=== PATIENT | male | born 1975 | race Caucasian/White ===

== ENCOUNTER 2019-09-26 10:45 | Emergency (ER) | payer BC ==
[2019-09-26 11:13] VITALS: BP 190/120
--- NOTE | 2019-09-26 11:13 | UC ---
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 HE DEVELOPED SOME LIGHTHEADEDNESS AND SAW SOME DARK SPOTS. HE ALSO HAD SOME TRANSIENT SHORTNESS OF BREATH AND TINGLING IN HIS HANDS. THIS ALL LASTED JUST A FEW SECONDS AND THEN ABATED. HE HAD A SECOND EPISODE MOMENTS LATER WHICH ALSO SPONTANEOUSLY RESOLVED. IS STILL FEELING A LITTLE "OFF" SO CAME TO THE URGENT CARE FOR FURTHER EVALUATION. NO NAUSEA OR DIZZINESS. HE HAS A HISTORY OF UNTREATED MILD HYPERTENSION AND GOUT. - History of Current Complaint Chief Complaint: UCCardiac Stated Complaint: DIZZY CHEST PAIN Time Seen by Provider: 09/26/19 10:46 Hx Obtained From: Patient Onset/Duration: Sudden Onset Timing: Intermittent Episodes Lasting: - SECONDS Initial Severity: Moderate Current Severity: Moderate Pain Intensity: 2 Chest Pain Location: Lower Sternal Aggravating Factor(s): Nothing Alleviating Factor(s): Spontaneous Resolution Associated Signs & Symptoms: Positive: Chest Pain, Tingling, SOB. Negative: Diaphoresis, Nausea/Vomiting, Palpitations - Allergy/Home Medications Allergies/Adverse Reactions: Allergies Allergy/AdvReac Type Severity Reaction Status Date / Time No Known Allergies Allergy Verified 09/26/19 10:59 Home Medications: Home Medications Ibuprofen [Advil] 600 mg PO ONCE PRN 09/26/19 [History Confirmed 09/26/19] allopurinoL [Allopurinol] 3 tab PO DAILY 09/26/19 [History Confirmed 09/26/19] PMH/Surg Hx/FS Hx/Imm Hx - Additional Past Medical History Additional PMH: GOUT Cardiovascular History: Hypertension - Surgical History Surgical History: Yes Surgery Procedure, Year, and Place: T&A. moles removed - Family History Known Family History: Positive: Cardiac Disease, Hypertension - Social History Alcohol Use: Weekly Alcohol Amount: couple times a week Substance Use Type: None Smoking Status (MU): Former Smoker Review of Systems All Other Systems Reviewed And Are Negative: Yes Constitutional: Positive: Negative ENT: Positive: Negative Respiratory: Positive: Shortness Of Breath Cardiovascular: Positive: Chest Pain Gastrointestinal: Positive: Negative Neurological: Positive: Paresthesia Physical Exam Triage Information Reviewed: Yes Appearance: Well-Appearing, No Pain Distress, Well-Nourished Vital Signs: Initial Vital Signs Temp 99.2 F 01/21/20 10:52 Pulse 82 09/26/19 10:52 Resp 18 09/26/19 10:52 BP 170/87 09/26/19 10:52 Pulse Ox 100 09/26/19 10:52 Vital Signs Reviewed: Yes Eyes: Positive: Conjunctiva Clear ENT: Positive: Hearing grossly normal Neck: Positive: Supple, Nontender, No Lymphadenopathy Respiratory Exam: Normal Cardiovascular Exam: Normal Abdomen Description: Positive: Nontender, Soft Musculoskeletal: Positive: No Edema Neurological: Positive: Alert, Muscle Tone Normal, Other: - CN II-XII GROSSLY INTACT BILATERALLY Psychological: Positive: Age Appropriate Behavior Skin: Negative: Rashes Diagnostics - EKG Cardiac Rate: NL - 69 BPM Cardiac Rhythm: Sinus: Normal Ectopy: None ST Segment: Normal - Assessment/Plan Course Of Treatment: PT OFFERED TRANSPORT TO THE ER BY AMBULANCE BUT DECLINES. ADVISED THAT BY NOT TRAVELING IN A MONITORED SETTING HE COULD BE RISKING WORSENING OF HIS CONDITION THAT COULD POSE A THREAT TO HIS LIFE, HEALTH AND MEDICAL SAFETY. DISCUSSED MY CONCERN FOR UNDERLYING CARDIAC CONDITION AND DANGEROUSLY ELEVATED BP. HE VERBALIZES UNDERSTANDING AND CONTINUES TO DECLINE AMBULANCE TRANSFER. CHARGE NURSE MICHAEL AT THE [facility] NOTIFED OF PT IMPENDING ARRIVAL. - Clinical Impression Provider Diagnosis: Chest pain Discharge ED - Sign-Out/Discharge Documenting (check all that apply): Patient Departure All imaging exams completed and their final reports reviewed: No Studies - Discharge Plan Condition: Stable Disposition: TRANS HIGHER LVL OF CARE FAC Patient Education Materials: Chest Pain (ED) Referrals: No Primary Care Phys,NOPCP [Primary Care Provider] - Additional Instructions: GO DIRECTLY TO THE [facility] FROM HERE FOR FURTHER EVALUATION. YOU HAVE DECLINED TRANSFER TO THE ER BY AMBULANCE. BE ADVISED THAT BY NOT TRAVELING IN A MONITORED SETTING YOU COULD BE RISKING WORSENING OF YOUR CONDITION THAT COULD POSE A THREAT TO YOUR LIFE, HEALTH AND MEDICAL SAFETY. - Billing Disposition and Condition Condition: STABLE Disposition: Trans Higher Lvl of Care Fac
== END 2019-09-26 11:16 | disposition short-term general hospital (02) ==
LOC: UCEAST 10:45
DX: R07.9 Chest pain, unspecified (principal); I10 Essential (primary) hypertension; M10.9 Gout, unspecified; Z87.891 Personal history of nicotine dependence; Z79.899 Other long term (current) drug therapy
CPT/HCPCS: 93005; 99202; G0463

== ENCOUNTER 2019-09-26 11:30 | Emergency (ER) | payer BC ==
--- NOTE | 2019-09-26 11:52 | ED ---
HPI Chest Pain - HPI Summary HPI Summary: This pt is a 44 y/o male presenting to [facility] c/o episodes of chest fluttering since 1015 today. Pt reports he was in a meeting while sitting down when he suddenly felt fluttering sensation in his chest. He states he thought he might fall over and had associated symptoms of diaphoresis, hands feeling cold and clammy. Pt reports this episodes lasted 3-4 seconds and then resolved spontaneously. Denies any nausea, vomiting, or dizziness. Pt went outside to get some fresh air and then drove to [facility]. Pt states he had a second episode of chest fluttering that also lasted 3-4 seconds but resolved spontaneously again. Pt had an EKG at [facility] and was advised to come to the ED. Pt reports occasional alcohol. Denies drug use. He is a former smoker. Patient also reports increase in coffee intake lately. Denies drinking any power drinks. - History of Current Complaint Chief Complaint: EDChestPainROMI Time Seen by Provider: 09/26/19 11:45 Hx Obtained From: Patient Onset/Duration: Started Hours Ago, Still Present Timing: Lasting Seconds Current Severity: None Pain Intensity: 0 Pain Scale Used: 0-10 Numeric Chest Pain Location: Diffuse Chest Pain Radiates: No Character: Fluttering Aggravating Factor(s): Nothing Alleviating Factor(s): Spontaneous Resolution Associated Signs and Symptoms: Positive: Chest Pain, Diaphoresis. Negative: Dizziness, Nausea, Vomiting - Allergy/Home Medications Allergies/Adverse Reactions: Allergies Allergy/AdvReac Type Severity Reaction Status Date / Time No Known Allergies Allergy Verified 09/26/19 11:42 PMH/Surg Hx/FS Hx/Imm Hx Cardiovascular History: Reports: Hx Hypertension Musculoskeletal History: Reports: Hx Gout - Surgical History Surgical History: Yes Surgery Procedure, Year, and Place: T&A. moles removed Infectious Disease History: No Infectious Disease History: Denies: Traveled Outside the [place] in Last 30 Days - Family History Known Family History: Positive: Cardiac Disease - father with fatal [place] in his 70s, Hypertension Family History: Mother with colon CA. - Social History Alcohol Use: Weekly Alcohol Amount: couple times a week Substance Use Type: Reports: None Smoking Status (MU): Former Smoker Review of Systems Positive: Skin Diaphoresis. Negative: Fever Positive: Chest Pain All Other Systems Reviewed And Are Negative: Yes Physical Exam - Summary Physical Exam Summary: VITAL SIGNS: Reviewed. GENERAL: Patient is a well-developed and nourished male who is lying comfortable in the stretcher. Patient is not in any acute respiratory distress. HEAD AND FACE: No signs of trauma. No ecchymosis, hematomas or skull depressions. No sinus tenderness. EYES: PERRLA, EOMI x 2, No injected conjunctiva, no nystagmus. EARS: Hearing grossly intact. Ear canals and tympanic membranes are within normal limits. MOUTH: Oropharynx within normal limits. NECK: Supple, trachea is midline, no adenopathy, no JVD, no carotid bruit, no c- spine tenderness, neck with full ROM. CHEST: Symmetric, no tenderness at palpation LUNGS: Clear to auscultation bilaterally. No wheezing or crackles. CVS: Regular rate and rhythm, S1 and S2 present, no murmurs or gallops appreciated. ABDOMEN: Soft, non-tender. No signs of distention. No rebound, no guarding, and no masses palpated. Bowel sounds are normal. EXTREMITIES: FROM in all major joints, no edema, no cyanosis or clubbing. NEURO: Alert and oriented x 3. No acute neurological deficits. Speech is normal and follows commands. SKIN: Dry and warm Triage Information Reviewed: Yes Vital Signs On Initial Exam: Initial Vitals Temp Pulse Resp BP Pulse Ox 98.0 F 70 16 180/101 100 09/26/19 11:39 09/26/19 11:39 09/26/19 11:39 09/26/19 11:39 09/26/19 11:39 Vital Signs Reviewed: Yes Procedures - Sedation Patient Received Moderate/Deep Sedation with Procedure: No Diagnostics - Vital Signs Vital Signs Temp Pulse Resp BP Pulse Ox 09/26/19 11:39 98.0 F 70 16 180/101 100 - Laboratory Result Diagrams: 09/26/19 11:47 09/26/19 11:47 Lab Statement: Any lab studies that have been ordered have been reviewed, and results considered in the medical decision making process. - Radiology chest XR Radiology Interpretation Completed By: Radiologist Summary of Radiographic Findings: IMPRESSION: No evidence for active cardiopulmonary disease. Dr. Lara has reviewed this report. - EKG 11:34 Cardiac Rate: NL - at 70 bpm EKG Rhythm: Sinus Rhythm Summary of EKG Findings: EKG at 1134 shows sinus rhythm at a rate of [address] elevations. ED physician has reviewed and interpreted this EKG. Chest Pain Course/Dx - Course Assessment/Plan: This pt is a 44 y/o male presenting to [facility] c/o episodes of chest fluttering since 5 today. Pt reports he was in a meeting while sitting down when he suddenly felt fluttering sensation in his chest. He states he thought he might fall over and had associated symptoms of diaphoresis, hands feeling cold and clammy. Pt reports this episodes lasted 3-4 seconds and then resolved spontaneously. Denies any nausea, vomiting, or dizziness. Pt went outside to get some fresh air and then drove to [facility]. Pt states he had a second episode of chest fluttering that also lasted 3-4 seconds but resolved spontaneously again. Pt had an EKG at [facility] and was advised to come to the ED. Pt reports occasional alcohol. Denies drug use. He is a former smoker. Patient also reports increase in coffee intake lately. Denies drinking any power drinks. Results without any significant abnormality except for glucose of 104. Troponin is 0.01. EKG is a normal sinus rhythm without any ST elevations. Chest x-ray impression: No evidence for active cardiopulmonary disease. Patient continues to be asymptomatic. I believe that the patient may benefit from a Holter monitor. Patient reports that all symptoms have resolved. Patient HEART score is: 0. therefore, low suspicion for CAD. Patient is not hypoxic or tachycardic. Wells criteria is 0, therefore, no suspicion for PE. Patient has no abdominal bruit thus no suspicion for AAA. Patients pain does not radiate to the back and pain has resolved thus low suspicion for aortic dissection. I discussed all the findings and test results with the patient. Patient was instructed to return to the emergency room immediately if any of the symptoms return or worsen. Patient understands and agrees. Plan of care was discussed with the patient and patient understands and agrees. All questions were answered at patient satisfaction. There were no further complaints or concerns. Physical Exam before discharge: CVS: S1 and S2 present. No murmurs appreciated. Abdominal exam before discharge: Soft, non- tender. No signs of distention. No rebound no guarding, and no masses palpated. Bowel sounds are normal. Patient is alert and oriented x 3. Patient is hemodynamically stable. - Chest Pain Differential Diagnosis/HQI/PQRI: ACS, Other: - Arrythmia - Diagnoses Provider Diagnoses: Palpitations, Arrhythmia Discharge ED - Sign-Out/Discharge Documenting (check all that apply): Patient Departure - Discharge home - Discharge Plan Condition: Stable Disposition: HOME Patient Education Materials: Heart Palpitations (ED) Referrals: [facility] [Outside] Additional Instructions: FOLLOW UP WITH YOUR PRIMARY CARE PROVIDER IN 2-3 DAYS. RETURN TO THE ED FOR ANY NEW OR WORSENING SYMPTOMS. - Billing Disposition and Condition Condition: STABLE Disposition: Home - Attestation Statements Document Initiated by Alvaibe: Yes Documenting Scribe: Shaunna Francois Provider For Whom Alvaibholden is Documenting (Include Credential): Jason Lara MD Scribe Attestation: Shaunna Valentine scribed for Jason Lara MD on 09/26/19 at 2143. Scribe Documentation Reviewed: Yes Provider Attestation: The documentation as recorded by the Shaunna roche accurately reflects the service I personally performed and the decisions made by , Jason Lara MD Status of Scribe Document: Viewed
[2019-09-26 11:54] LABS: ABS Basophils 0.1 10^3/ul (0-0.2); ABS Eosinophils 0.1 10^3/ul (0-0.6); ABS Lymphocytes 1.8 10^3/ul (1.0-4.8); ABS Monocytes 0.6 10^3/ul (0-0.8); Eosinophil % 1.6 %; Hematocrit 44 % (42-52); Hemoglobin 15.2 g/dL (14.0-18.0); Lymphocyte % 23.9 %; Mean Corpuscular HGB Conc 35 g/dL (31-36); Mean Corpuscular Hemoglobin 30 pg (27-31); Mean Corpuscular Volume 85 fL (80-94); Mean Platelet Volume 7.8 fL (7.4-10.4); Platelet Count 309 10^3/uL (150-450); Red Blood Count 5.14 10^6 /uL (4.18-5.48); Red Cell Distribution Width 12 % (10-15); White Blood Count 7.5 10^3/uL (3.5-10.8)
[2019-09-26 12:00] LABS: INR 1.01 (0.82-1.09)
[2019-09-26 12:11] LABS: Albumin 4.8 g/dL (3.2-5.2); Albumin/Globulin Ratio 1.7 (1-3); BUN/Creatinine Ratio 12.5 (8-20); Calcium 9.9 mg/dL (8.6-10.3); EGFR African American 93.9 (>60); EGFR Non-African American 77.6 (>60); Globulin 2.9 g/dL (2-4); Potassium 3.8 mmol/L (3.5-5.0); Total Bilirubin 0.9 mg/dL (0.2-1.0); Total Protein 7.7 g/dL (6.4-8.9)
[2019-09-26 12:12] LABS: Troponin I 0.01 ng/mL (<0.03)
[2019-09-26 13:04] LABS: TSH (Thyroid Stimulating Horm) 1.83 mcIU/mL (0.34-5.60)
[2019-09-26 13:22] VITALS: BP 138/86
== END 2019-09-26 13:28 | disposition home or self-care (01) ==
LOC: ED 11:30
DX: I49.9 Cardiac arrhythmia, unspecified (principal); I10 Essential (primary) hypertension; Z87.891 Personal history of nicotine dependence
CPT/HCPCS: 36415; 71046; 80053; 83735; 84443; 84484; 85025; 85610; 93005; 99283